=== PATIENT | male | born 1995 | race Caucasian/White ===

== ENCOUNTER → 2017-05-08 | Outpatient (CLI) | payer OTHER ==
[~2017-05-08] VITALS: Ht 175.3 cm; Wt 74.8 kg
[~2017-05-08] MED LIST: GADOBUTROL 10 MMOL/10 ML (GADAVIST) VIAL IV ONE; IOHEXOL 300 MG/ML 30 ML (OMNIPAQUE 300) VIAL IV ONE
[2017-05-08 13:39] VITALS: BP 118/70
[2017-05-08 14:06] VITALS: BP 120/72
--- NOTE | 2017-05-08 14:45 | Diagnostic Imaging Report ---
EXAMINATION: Left shoulder injection for MRI. IMPRESSION: Shoulder pain Following aseptic preparation of the skin and administration of local anesthesia a 19-gauge needle was advanced into the glenohumeral joint using fluoroscopic guidance. Approximately 15 cc of a mixture of Omnipaque sodium chloride and gadolinium was infused. The patient tolerated the procedure well and was dismissed in good condition. IMPRESSION: There has been a successful injection of the left shoulder. MRI is pending for further study. Dictated by: Dictated on workstation # [id number]
--- NOTE | 2017-05-08 15:22 | Diagnostic Imaging Report ---
PROCEDURE: MRI left joint upper extremity with contrast. TECHNIQUE: Multiplanar, multisequence contrast-enhanced MRI of the left upper extremity was accomplished. This exam was conducted following intra-articular injection of contrast. INDICATION: Left shoulder pain. There are no previous exams available for comparison. FINDINGS: The T1 coronal fat-saturated series shows an irregular area of increased signal extending through the superior labrum. This does indicate a SLAP 2 tear. There is also some extension of the contrast near the biceps anchor and I am concerned that there is also a SLAP 3 tear in this region. In addition, the labrum is discontinuous anteriorly and inferiorly. By history, the patient has had a prior labral repair. This finding could be a sequela of the prior surgical repair or another tear of the labrum. Correlation with the patient's history would be recommended. There is no abnormal signal arising from the rotator cuff to suggest a tear and the supraspinatus muscle is not retracted or bunched. The acromioclavicular joint is not hypertrophied and there is no narrowing of the outlet for the supraspinatus muscle. The biceps tendon and the subscapularis tendon are intact. There is no abnormal signal arising from the osseous structures to suggest bone edema or a fracture. IMPRESSION: 1. There is a SLAP 2 and perhaps a SLAP 3 tear of the labrum. The anterior inferior aspect of the labrum also has an abnormal appearance. Whether this is a sequela of the patient's prior surgery or another labral tear is not certain. 2. There is no evidence for a tear of the rotator cuff. 3. The acromioclavicular joint is not hypertrophied and there is no narrowing of the outlet for the supraspinatus muscle. 4. There is no sign of an acute bony abnormality. Dictated by: Dictated on workstation # [id number]
== END ==
LOC: RAD 13:17
PROVIDERS: ATTEND Orthopaedic Surgery
DX: S43.431A Superior glenoid labrum lesion of right shoulder, initial encounter (principal); X58.XXXA Exposure to other specified factors, initial encounter; Y99.8 Other external cause status
CPT/HCPCS: 23350; 73040; 73222